=== PATIENT | female | born 1965 | race Caucasian/White ===

== ENCOUNTER 2021-07-16 07:56 | Outpatient (CLI) | payer OTHER | END 2021-07-16 07:57 | disposition home or self-care (01) | LOC: CSHMAMMO 07:56 | PROVIDERS: ATTEND Nurse Practitioner Family | DX: Z12.31 Encounter for screening mammogram for malignant neoplasm of breast (principal); Z98.890 Other specified postprocedural states; Z80.3 Family history of malignant neoplasm of breast | CPT/HCPCS: 77063; 77067 ==

== ENCOUNTER 2023-08-13 10:15 | Outpatient (CLI) | payer BC | END 2023-08-13 10:16 | disposition home or self-care (01) | LOC: CSHMAMMO 10:15 | PROVIDERS: ATTEND Nurse Practitioner Family | DX: Z12.31 Encounter for screening mammogram for malignant neoplasm of breast (principal); Z80.3 Family history of malignant neoplasm of breast; Z98.890 Other specified postprocedural states | CPT/HCPCS: 77063; 77067 ==

== ENCOUNTER 2024-08-17 08:46 | Outpatient (CLI) | payer BC | END 2024-08-17 08:47 | disposition home or self-care (01) | LOC: CSHMAMMO 08:46 | PROVIDERS: ATTEND Nurse Practitioner Family | DX: Z12.31 Encounter for screening mammogram for malignant neoplasm of breast (principal); Z80.3 Family history of malignant neoplasm of breast; Z98.890 Other specified postprocedural states | CPT/HCPCS: 77063; 77067 ==

== ENCOUNTER 2025-08-22 11:41 | Outpatient (CLI) | payer BC | END 2025-08-22 11:42 | disposition home or self-care (01) | LOC: CSHMAMMO 11:41 | PROVIDERS: ATTEND Nurse Practitioner Family | DX: Z12.31 Encounter for screening mammogram for malignant neoplasm of breast (principal); Z80.3 Family history of malignant neoplasm of breast; R92.333 Mammographic heterogeneous density, bilateral breasts; Z98.890 Other specified postprocedural states | CPT/HCPCS: 77063; 77067 ==